=== PATIENT | female | born 1950 | race African-American/Black ===

== ENCOUNTER 2019-09-27 07:27 | Emergency (ER) | payer MEDICARE ==
[~2019-09-27] VITALS: Ht 157.5 cm; Wt 41.3 kg
--- NOTE | 2019-09-27 07:53 | NUR ---
patient BIBRA from home, cough and congestion weakness x 3 days. On room air, breathing evenly and unlabored. connected to the monitor and pulse ox. Kept comfortable will continue to monitor accordingly. awaiting for MD for eval.
[2019-09-27] MEDS: IV NS 0.9% 1,000 ML BAG IV ONE (08:35)
[2019-09-27 08:38] LABS: BASOPHILS % (AUTO) 0.6 % (0.0-2.0); HEMATOCRIT 46 % (33-45); HEMOGLOBIN 15.2 g/dL (11.5-14.8); LYMPHOCYTES # (AUTO) 1.3 /CMM (0.8-4.8); LYMPHOCYTES % (AUTO) 20.3 % (20.0-44.0); MEAN CORPUSCULAR HGB CONC 33 g/dl (31.0-36.0); MEAN CORPUSCULAR VOLUME 90 fL (82-100); MONOCYTES % (AUTO) 15.8 % (2.0-12.0); NEUTROPHILS # (AUTO) 4.1 /CMM (1.8-8.9); NEUTROPHILS % (AUTO) 63.3 % (43.0-81.0); PLATELET COUNT (AUTO) 168 /CMM (150-450); RED BLOOD CELL COUNT(AUTO) 5.08 MIL/uL (4.0-5.2); WHITE BLOOD COUNT (AUTO) 6.4 K/uL (4.3-11.0)
[2019-09-27] MEDS: IV NS 0.9% 1,000 ML IV ONE ×2 (08:40→08:52)
[2019-09-27] MEDS: ALBUTEROL FS 2.5 MG/3 ML VIAL.NEB CONTNEB ONE (08:40)
[2019-09-27 08:47] LABS: CREATININE 1.1 mg/dL (0.6-1.3); POTASSIUM 3.8 mmol/L (3.5-5.1)
[2019-09-27 08:59] LABS: ALBUMIN 3.4 g/dL (3.4-5.0); BILIRUBIN,TOTAL 0.3 mg/dL (0.2-1.0); TOTAL PROTEIN, SERUM 7.5 g/dL (6.4-8.2)
[2019-09-27 09:35] LABS: APPEARANCE,URINE Turbid (CLEAR); BILIRUBIN,URINE SMALL (NEGATIVE); BLOOD, URINE Small Ery/uL (NEGATIVE); COLOR,URINE Yellow (YELLOW); KETONES,URINE 15 (NEGATIVE); LEUKOCYTE ESTERASE ,URINE Small (NEGATIVE); NITRITE, URINE Negative (NEGATIVE); PH,URINE 5.5 (5.0-8.0); PROTEIN,URINE Trace mg/dl (NEGATIVE); UGLUCOSE Negative (NEGATIVE); UROBILINOGEN,URINE 0.2 EU/dL (0.2)
[2019-09-27 09:51] LABS: RBC,URINE 0-2 /HPF (0-2)
[2019-09-27 09:52] LABS: BACTERIA,URINE Many /HPF (None Seen); SQUAMOUS EPITHELIAL CELL,UR Few /HPF (None Seen); WBC,URINE 21-50 /HPF (0-3)
--- NOTE | 2019-09-27 11:16 | NUR ---
ASSUMED CARE OF PT.
[2019-09-27] MEDS ORDERED: ONDANSETRON HCL/PF 4 MG/2 ML VIAL ONE (11:48)
[2019-09-27] MEDS: ONDANSETRON HCL/PF 8 MG in IV D5W 50 ML IV ONE (11:56)
--- NOTE | 2019-09-27 12:04 | NUR ---
PT IS C/O NAUSEA. PT IS CURRENTLY ON A ZOFRAN DRIP. PT WILL CONTINUE TO BE MONITORED.
--- NOTE | 2019-09-27 12:50 | NUR ---
DR CAMPBELL IS AT THE BEDSIDE SPEAKING TO THE PT.
--- NOTE | 2019-09-27 12:55 | NUR ---
PT IS TOLERATING JUICE WELL.
--- NOTE | 2019-09-27 14:54 | NUR ---
Patient discharged to home in stable condition BY DR CAMPBELL WITH VERBAL INSTRUCTIONS. IV removed. Catheter intact and site benign. Pressure and 4x4 applied to site. No bleeding noted. VSS.
[2019-09-27 14:55] VITALS: BP 123/67
== END 2019-09-27 14:56 | disposition home or self-care (01) ==
LOC: ER 07:30
DX: R11.2 Nausea with vomiting, unspecified (principal); F32.9 Major depressive disorder, single episode, unspecified; R07.89 Other chest pain
CPT/HCPCS: 36415; 71045; 80053; 81001; 83880; 84484; 85025; 87086; 96361; 96365; 99284; J2405 ×2; J7030; J7060 ×2; 81000-TC